=== PATIENT | female | born 1995 | race Caucasian/White ===

== ENCOUNTER 2017-03-17 06:17 | Emergency (ER) | payer BC, OTHER ==
[2017-03-17 07:29] LABS: URINE BLOOD (Dip) POC Negative (NEGATIVE); URINE GLUCOSE (Dip) POC Negative (NEGATIVE); URINE KETONES (Dip) POC Negative (NEGATIVE); URINE LEUKOCYTE EST (Dip) POC Negative (NEGATIVE); URINE NITRITE (Dip) POC Negative (NEGATIVE); URINE TOTAL PROTEIN POC Trace (NEGATIVE)
== END 2017-03-17 08:56 | disposition home or self-care (01) ==
LOC: FTE 06:17
DX: G44.209 Tension-type headache, unspecified, not intractable (principal); E66.9 Obesity, unspecified; Z68.43 Body mass index [BMI] 50.0-59.9, adult; Z87.891 Personal history of nicotine dependence
CPT/HCPCS: 70450; 81003; 99284-25

== ENCOUNTER 2017-12-19 01:45 | Emergency (ER) | payer BC ==
[2017-12-19] MEDS: IBUPROFEN 600 MG TAB PO (02:28)
[2017-12-19] MEDS: METHYLPREDNISOLONE 125 MG INJ IM (02:29)
[2017-12-19] MEDS: ACETAMINOPHEN 500 MG TAB PO (02:29)
[2017-12-19] MEDS: ALBUTEROL 0.083% (NEB) 2.5 MG/3 ML AMP NEB (02:41)
[2017-12-19] MEDS: IPRATROPIUM (NEB) 0.5 MG/2.5 ML AMP NEB (02:41)
== END 2017-12-19 03:38 | disposition home or self-care (01) ==
LOC: FTE 01:45
DX: J20.9 Acute bronchitis, unspecified (principal); E66.9 Obesity, unspecified; Z68.43 Body mass index [BMI] 50.0-59.9, adult
CPT/HCPCS: 71045; 94664; 96372; 99284-25